=== PATIENT | female | born 1935 | race Caucasian/White ===

== ENCOUNTER 2025-06-10 11:19 | Outpatient (CLI) | payer MEDICARE, OTHER ==
[~2025-06-10 11:19] MED LIST: ATOR10TA PO; FENO160T PO; HYDR-3972 PO; INSU100I4 SQ; SITA1TAB6 PO; TEMA30CA PO
== END 2025-06-10 23:59 | disposition home or self-care (01) ==
LOC: WOU 11:19
PROVIDERS: ATTEND Student in an Organized Health Care Education/Training Program
DX: Z48.817 Encounter for surgical aftercare following surgery on the skin and subcutaneous tissue (principal); E11.9 Type 2 diabetes mellitus without complications; S06.5XAD Traumatic subdural hemorrhage with loss of consciousness status unknown, subsequent encounter; S01.00XD Unspecified open wound of scalp, subsequent encounter; W19.XXXD Unspecified fall, subsequent encounter

== ENCOUNTER 2025-08-22 10:56 | Outpatient (CLI) | payer MEDICARE, OTHER | END 2025-08-22 23:59 | disposition home health service (06) | LOC: WOU 10:56 | PROVIDERS: ATTEND Student in an Organized Health Care Education/Training Program | DX: S01.00XD Unspecified open wound of scalp, subsequent encounter (principal); X58.XXXD Exposure to other specified factors, subsequent encounter; E11.9 Type 2 diabetes mellitus without complications; Z79.4 Long term (current) use of insulin; Z79.84 Long term (current) use of oral hypoglycemic drugs ==